=== PATIENT | female | born 1950 | race Caucasian/White ===

== ENCOUNTER 2018-01-14 09:23 | Emergency (ER) | payer OTHER ==
[2018-01-14 09:31] VITALS: RESP 16; TEMP 96.8
[2018-01-14] MEDS ORDERED: IBUPROFEN 600 MG TAB PO ONE (10:41)
--- NOTE | 2018-01-14 11:16 | EDPHY ---
H & P Time Seen by Provider: 01/14/18 09:53 HPI/ROS: CHIEF COMPLAINT: Left wrist injury HISTORY OF PRESENT ILLNESS: 67-year-old female presents to the emergency department with injury to the left wrist. The patient was at [employer] area wearing ski boots and slipped on some ice and fell on her left wrist. She did not hit her head or lose consciousness. She is right-hand dominant. She has pain especially with range of motion. She is also having some pain in her left shoulder. ROS: Denies numbness or tingling in her fingers, pain in her left elbow, right upper extremity or lower extremities bilaterally. Past Medical/Surgical History: Orthopedic surgery Social History: and lives in [place] Smoking Status: Never smoked Physical Exam: On examination patient has obvious swelling over the dorsal aspect of the left wrist overlying distal radius. Nontender to palpate in the anatomic snuffbox. Limited supination secondary to pain. Full flexion and extension of the left wrist. She has reproducible pain with palpation of the anterior aspect of her left shoulder. No palpable crepitus or other bony abnormality. No abrasion or puncture wound noted. Normal sensation to light touch with normal 2 point discrimination. Strong radial pulse at the left wrist. Full range of motion of the right upper extremity and lower extremities bilaterally. Constitutional: Initial Vital Signs Temperature (C) 36.0 C 01/14/18 09:28 Heart Rate 76 01/14/18 09:28 Respiratory Rate 16 01/14/18 09:28 Blood Pressure 155/80 H 01/14/18 09:28 O2 Sat (%) 97 01/14/18 09:28 O2 Delivery Mode Room Air Allergies/Adverse Reactions: Penicillins Allergy (Unknown, Verified 11/30/15 18:56) Home Medications: Medication Instructions Recorded [place]als/Supplements -Info Only 1 ea PO DAILY 11/30/15 Ibuprofen 400 mg PO Q4 PRN #20 capsule 12/02/15 oxyCODONE HCL/ACETAMINOPHEN 1 - 2 each PO Q6-8PRN PRN #15 12/02/15 [Percocet 10-325 mg Tablet] tablet MDM/Departure - MDM Imaging: I viewed and interpreted images myself Medications Given: Discontinued Medications Ibuprofen (Motrin) 600 mg PO EDNOW ONE Stop: 01/14/18 10:42 Last Admin: 01/14/18 10:44 Dose: 600 mg ED Course/Re-evaluation: 67-year-old female presents to the emergency department with left wrist injury and left shoulder injury. X-rays reveal distal radius fracture which is intra- articular. She was placed in a splint and given orthopedic referral. X-rays of the left shoulder reveal no fractures. She was placed in a sling for comfort and support. - Depart Disposition: Home, Routine, Self-Care Clinical Impression: Left wrist fracture Qualifiers: Encounter type: initial encounter Fracture type: closed Qualified Code(s): S62.102A - Fracture of unspecified carpal bone, left wrist, initial encounter for closed fracture Sprain of left shoulder Qualifiers: Encounter type: initial encounter Shoulder sprain type: unspecified sprain Qualified Code(s): S43.402A - Unspecified sprain of left shoulder joint, initial encounter Condition: Good Instructions: Wrist Fracture in Adults (ED), Shoulder Sprain (ED) Additional Instructions: Keep splint and sling on until follow-up with orthopedic surgeon this week. Ibuprofen 600 mg every 8 hr as needed for pain. Ice and elevate to help reduce swelling. Return if to the emergency department if you develop numbness or tingling in your fingers, increasing pain, or any other concerns. Referrals: Nicole Villarreal MD [Medical Doctor] - 2-3 days without fail (Orthopedic surgeon on-call) Flaco Long MD [Medical Doctor] - As per Instructions (Orthopedic surgeon on-call)
[2018-01-14 11:33] VITALS: BP 115/71; PULSE 66; O2SAT 90
== END 2018-01-14 11:28 | disposition home or self-care (01) ==
DX: S62.102A Fracture of unspecified carpal bone, left wrist, initial encounter for closed fracture (principal); S43.402A Unspecified sprain of left shoulder joint, initial encounter; W01.0XXA Fall on same level from slipping, tripping and stumbling without subsequent striking against object, initial encounter
CPT/HCPCS: 73030; 73110; 99283; A4565

== ENCOUNTER → 2018-01-22 | Outpatient (CLI) | payer OTHER | LOC: CIMAGING 10:19 | PROVIDERS: ATTEND Orthopaedic Surgery Hand Surgery | DX: Z01.818 Encounter for other preprocedural examination (principal); S52.572A Other intraarticular fracture of lower end of left radius, initial encounter for closed fracture | CPT/HCPCS: 73200-PO ==

== ENCOUNTER → 2019-03-07 | Outpatient (CLI) | payer OTHER | LOC: BMCIMAGING 08:07 | PROVIDERS: ATTEND Nurse Practitioner Family | DX: Z12.31 Encounter for screening mammogram for malignant neoplasm of breast (principal) ==